=== PATIENT | male | born 1950 | race Caucasian/White ===

== ENCOUNTER 2021-10-14 06:47 | Outpatient (CLI) | payer OTHER, SELFPAY ==
--- NOTE | 2021-10-14 | US_ITS ---
WS: [id number] RENAL ULTRASOUND HISTORY: LEFT flank pain COMPARISON: None available. TECHNIQUE: 2-D and color Doppler imaging of the kidney submitted. Right kidney: 11.1 cm x 5.5 cm x 5.0 cm. Normal echogenicity with no hydronephrosis or mass. Left kidney: 11.7 cm x 5.2 cm x 4.7 cm. Normal echogenicity with no hydronephrosis or mass. Aorta: Normal. Urinary Bladder: Normal distention. Enlarged heterogeneous prostate gland. Prostate measures 4.4 x 4.5 x 3.7 cm. There is mild encroachme nt into the base of the urinary bladder. US/US renal BI* [id number] IMPRESSION: 1. Normal renal ultrasound. 2. Mildly enlarged prostate gland.
== END 2021-10-14 06:48 | disposition home or self-care (01) ==
LOC: RAD 06:50
PROVIDERS: Visit Provider Family Medicine
DX: R10.32 Left lower quadrant pain (principal); N40.0 Benign prostatic hyperplasia without lower urinary tract symptoms
CPT/HCPCS: 76770

== ENCOUNTER → 2023-10-30 11:01 | Outpatient (BNVA) | payer OTHER, SELFPAY | PROVIDERS: PCP Family Medicine; Visit Provider Internal Medicine Rheumatology | DX: Z11.59 Encounter for screening for other viral diseases (principal); Z11.1 Encounter for screening for respiratory tuberculosis; Z79.899 Other long term (current) drug therapy; M19.90 Unspecified osteoarthritis, unspecified site | CPT/HCPCS: 36415; 73130; 73630; 82306; 84550; 85651; 86140; 86200; 86431; 86480; 86704; 86803; 87340; 99204 ==

== ENCOUNTER 2023-12-12 08:11 | Outpatient (CLI) | payer OTHER, SELFPAY ==
[2023-12-12 08:22] LABS: Basophils # 0.1 10^3/uL (0.0-0.1); Basophils % 0.9 %; Eosinophils # 0.4 10^3/uL (0.0-0.8); Eosinophils % 5.5 %; Hematocrit 41.5 % (37-53); Lymphocytes # 2.6 10^3/uL (0.8-4.8); Lymphocytes % 33.8 %; Mean Corpuscular HGB Conc 33.5 g/dL (30-55); Mean Corpuscular Hemoglobin 29.9 pg (27-33); Mean Corpuscular Volume 89.2 fl (82-101); Mean Platelet Volume 9.8 fL (7.4-10.4); Monocytes # 0.7 10^3/uL (0.2-0.9); Monocytes % 8.9 %; Neutrophils # 3.87 10^3/uL (1.8-7.7); Neutrophils % 50.5 %; Nucleated Red Blood Cells % 0 %; Platelet Count 219 10^3/cmm (157-399); Red Blood Count 4.65 10^6/uL (3.85-5.65); Red Cell Distribution Width 14.7 % (12.1-15.1); White Blood Count 7.66 10^3/uL (3.29-11.43)
[2023-12-12 08:39] LABS: Alanine Aminotransferase 25 U/L (0-41); Albumin Level 4.2 g/dL (3.5-5.2); Alkaline Phosphatase 67 U/L (40-130); Aspartate Amino Transferase 18 U/L (0-40); Globulin 2.8 g/dL (1.3-4.6); Total Bilirubin 0.6 mg/dL (0.15-1.2)
== END 2023-12-12 08:12 | disposition home or self-care (01) ==
LOC: LAB 08:12
PROVIDERS: PCP Family Medicine; Visit Provider Internal Medicine Rheumatology
DX: M19.90 Unspecified osteoarthritis, unspecified site (principal); Z79.899 Other long term (current) drug therapy; N18.30 Chronic kidney disease, stage 3 unspecified
CPT/HCPCS: 36415; 80076; 82565; 85025; 86140

== ENCOUNTER 2024-04-01 09:12 | Outpatient (CLI) | payer OTHER, SELFPAY ==
[2024-04-01 09:28] LABS: Basophils % 0.5 %; Eosinophils # 0.3 10^3/uL (0.0-0.8); Eosinophils % 2.8 %; Hematocrit 42.8 % (37-53); Lymphocytes # 1.9 10^3/uL (0.8-4.8); Lymphocytes % 21.3 %; Mean Corpuscular HGB Conc 33.4 g/dL (30-55); Mean Corpuscular Hemoglobin 30.4 pg (27-33); Mean Corpuscular Volume 90.9 fl (82-101); Mean Platelet Volume 10.3 fL (7.4-10.4); Monocytes # 0.7 10^3/uL (0.2-0.9); Monocytes % 7.5 %; Neutrophils # 5.94 10^3/uL (1.8-7.7); Neutrophils % 67.6 %; Nucleated Red Blood Cells % 0 %; Platelet Count 219 10^3/cmm (157-399); Red Blood Count 4.71 10^6/uL (3.85-5.65); Red Cell Distribution Width 13.7 % (12.1-15.1); White Blood Count 8.79 10^3/uL (3.29-11.43)
[2024-04-01 09:46] LABS: Alanine Aminotransferase 27 U/L (0-41); Albumin Level 4.1 g/dL (3.5-5.2); Alkaline Phosphatase 60 U/L (40-130); Aspartate Amino Transferase 21 U/L (0-40); Globulin 2.8 g/dL (1.3-4.6); Total Bilirubin 0.6 mg/dL (0.15-1.2); Total Protein 6.9 g/dL (6.6-8.7)
[2024-04-01 09:48] LABS: Erythrocyte Sedimentation Rate < 1 mm/hr (0-10)
== END 2024-04-01 09:13 | disposition home or self-care (01) ==
PROVIDERS: PCP Family Medicine; Visit Provider Internal Medicine Rheumatology
DX: N18.30 Chronic kidney disease, stage 3 unspecified (principal); M06.041 Rheumatoid arthritis without rheumatoid factor, right hand; M06.042 Rheumatoid arthritis without rheumatoid factor, left hand; Z79.899 Other long term (current) drug therapy; Z71.85 Encounter for immunization safety counseling; Z11.1 Encounter for screening for respiratory tuberculosis; Z11.59 Encounter for screening for other viral diseases
CPT/HCPCS: 36415; 80076; 82565; 85025; 85651; 86140; 99214

== ENCOUNTER 2024-05-16 08:23 | Outpatient (CLI) | payer OTHER, SELFPAY ==
[2024-05-16 08:41] LABS: Basophils % 0.6 %; Eosinophils # 0.2 10^3/uL (0.0-0.8); Eosinophils % 2.9 %; Hematocrit 43.9 % (37-53); Lymphocytes % 29.7 %; Mean Corpuscular HGB Conc 33.7 g/dL (30-55); Mean Corpuscular Hemoglobin 30.7 pg (27-33); Mean Corpuscular Volume 91.1 fl (82-101); Mean Platelet Volume 10.4 fL (7.4-10.4); Monocytes # 0.6 10^3/uL (0.2-0.9); Monocytes % 9.8 %; Neutrophils # 3.72 10^3/uL (1.8-7.7); Neutrophils % 56.7 %; Nucleated Red Blood Cells % 0 %; Platelet Count 200 10^3/cmm (157-399); Red Blood Count 4.82 10^6/uL (3.85-5.65); Red Cell Distribution Width 13.4 % (12.1-15.1); White Blood Count 6.56 10^3/uL (3.29-11.43)
[2024-05-16 08:43] LABS: Erythrocyte Sedimentation Rate < 1 mm/hr (0-10)
[2024-05-16 09:00] LABS: Alanine Aminotransferase 37 U/L (0-41); Alkaline Phosphatase 65 U/L (40-130); Aspartate Amino Transferase 25 U/L (0-40); Globulin 2.8 g/dL (1.3-4.6); Total Bilirubin 0.6 mg/dL (0.15-1.2); Total Protein 6.8 g/dL (6.6-8.7)
== END 2024-05-16 08:24 | disposition home or self-care (01) ==
LOC: LAB 08:25
PROVIDERS: PCP Family Medicine; Visit Provider Internal Medicine Rheumatology
DX: Z79.899 Other long term (current) drug therapy (principal); M19.90 Unspecified osteoarthritis, unspecified site
CPT/HCPCS: 80076; 82565; 85025; 85651; 86140

== ENCOUNTER 2024-10-10 08:51 | Outpatient (CLI) | payer OTHER, SELFPAY ==
[2024-10-10 09:46] LABS: Bilirubin Urine Negative (Negative); Blood Urine Trace (Negative); Glucose Urine UA Negative (Normal); Ketones Urine Negative (Negative); Leukocyte Esterase Urine 2+ (Negative); Nitrate Urine Negative (Negative); Protein Urine 1+ (Negative); Specific Gravity, Urine 1.024 (1.005-1.030); Urine Appearance Clear (CLEAR); Urine Color Dark Yellow (Yellow); Urobilinogen Urine 0.2 mg/dL (Negative); pH Urine 5.5 (5-7)
[2024-10-10 10:11] LABS: Albumin Level 3.8 g/dL (3.5-5.2); Anion Gap 13.5 (5-19); Blood Urea Nitrogen 21 mg/dL (8-23); Calcium 9.2 mg/dL (8.5-10.5); Carbon Dioxide 26 mmol/L (22-29); Chloride 106 mmol/L (98-107); Glucose 96 mg/dL (65-115); Osmolality Calculated 297 mOsm/kg (285-295); Phosphorus 2.2 mg/dL (2.5-4.5); Potassium 3.5 mmol/L (3.5-5.1); Sodium 142 mmol/L (136-145)
[2024-10-10 10:12] LABS: Calcium 9.2 mg/dL (8.5-10.5)
[2024-10-10 10:16] LABS: Add Urine Culture? Yes; Bacteria Urine 2+ /hpf; Hyaline Casts Urine 0-4 /lpf; RBC Urine 0-4 /hpf (0-2); Squamous Epithelial Cell Urine 0-4 /hpf (0-5); UA Manual Slide Review YES; UA Slide Review UA Slide Review Perf; WBC Urine 25-40 /hpf (0-5)
[2024-10-10 10:17] LABS: Urine Creatinine 232 mg/dL (39-259)
[2024-10-10 10:18] LABS: Urine Protein Random 34 mg/dL
[2024-10-10 10:18] LABS: Parathyroid Hormone 43.6 pg/mL (15-65)
[2024-10-10 10:27] LABS: 25 Hydroxy Vitamin D 51 ng/mL (30-100)
== END 2024-10-10 08:52 | disposition home or self-care (01) ==
LOC: LAB 08:53
PROVIDERS: PCP Family Medicine; Visit Provider Nurse Practitioner Gerontology
DX: N18.31 Chronic kidney disease, stage 3a (principal); I12.9 Hypertensive chronic kidney disease with stage 1 through stage 4 chronic kidney disease, or unspecified chronic kidney disease; M10.9 Gout, unspecified; R80.1 Persistent proteinuria, unspecified
CPT/HCPCS: 36415; 80048; 81001; 82040; 82306; 82310; 82570; 83735; 83970; 84100; 84156; 84550; 85018; 87086

== ENCOUNTER 2024-10-20 10:34 | Outpatient (CLI) | payer OTHER, SELFPAY ==
[2024-10-20 11:00] LABS: Basophils # 0.1 10^3/uL (0.0-0.1); Basophils % 0.9 %; Eosinophils # 0.4 10^3/uL (0.0-0.8); Eosinophils % 4.9 %; Hematocrit 42.3 % (37-53); Lymphocytes # 1.8 10^3/uL (0.8-4.8); Lymphocytes % 24.3 %; Mean Corpuscular HGB Conc 32.9 g/dL (30-55); Mean Corpuscular Hemoglobin 29.7 pg (27-33); Mean Corpuscular Volume 90.4 fl (82-101); Mean Platelet Volume 10.1 fL (7.4-10.4); Monocytes # 0.7 10^3/uL (0.2-0.9); Monocytes % 8.9 %; Neutrophils # 4.48 10^3/uL (1.8-7.7); Neutrophils % 60.6 %; Nucleated Red Blood Cells % 0 %; Platelet Count 315 10^3/cmm (157-399); Red Blood Count 4.68 10^6/uL (3.85-5.65); Red Cell Distribution Width 13.2 % (12.1-15.1)
[2024-10-20 11:19] LABS: Alanine Aminotransferase 26 U/L (0-41); Albumin Level 4.1 g/dL (3.5-5.2); Alkaline Phosphatase 125 U/L (40-130); Aspartate Amino Transferase 20 U/L (0-40); Globulin 3.1 g/dL (1.3-4.6); Total Bilirubin 0.4 mg/dL (0.15-1.2); Total Protein 7.2 g/dL (6.6-8.7)
[2024-10-20 11:33] LABS: Erythrocyte Sedimentation Rate 8 mm/hr (0-10)
== END 2024-10-20 10:35 | disposition home or self-care (01) ==
LOC: LAB 10:36
PROVIDERS: PCP Family Medicine; Visit Provider Internal Medicine Rheumatology
DX: Z79.899 Other long term (current) drug therapy (principal); M06.041 Rheumatoid arthritis without rheumatoid factor, right hand; M06.042 Rheumatoid arthritis without rheumatoid factor, left hand
CPT/HCPCS: 36415; 80076; 82565; 85025; 85651; 86140

== ENCOUNTER → 2024-10-27 09:03 | Outpatient (BNVA) | payer OTHER, SELFPAY | PROVIDERS: PCP Family Medicine; Referring Provider Internal Medicine Rheumatology; Visit Provider Internal Medicine Rheumatology | DX: N18.30 Chronic kidney disease, stage 3 unspecified (principal); Z79.899 Other long term (current) drug therapy; Z71.85 Encounter for immunization safety counseling; M06.041 Rheumatoid arthritis without rheumatoid factor, right hand; M06.042 Rheumatoid arthritis without rheumatoid factor, left hand | CPT/HCPCS: 99214 ==

== ENCOUNTER 2025-01-27 09:26 | Outpatient (CLI) | payer OTHER, SELFPAY ==
[2025-01-27 10:58] LABS: Basophils % 0.6 %; Eosinophils # 0.4 10^3/uL (0.0-0.8); Eosinophils % 5.4 %; Hematocrit 41.3 % (37-53); Lymphocytes # 1.9 10^3/uL (0.8-4.8); Lymphocytes % 27.8 %; Mean Corpuscular HGB Conc 32.9 g/dL (30-55); Mean Corpuscular Hemoglobin 29.5 pg (27-33); Mean Corpuscular Volume 89.6 fl (82-101); Mean Platelet Volume 10.7 fL (7.4-10.4); Monocytes # 0.6 10^3/uL (0.2-0.9); Monocytes % 9.4 %; Neutrophils # 3.84 10^3/uL (1.8-7.7); Neutrophils % 56.5 %; Nucleated Red Blood Cells % 0 %; Platelet Count 218 10^3/cmm (157-399); Red Blood Count 4.61 10^6/uL (3.85-5.65); Red Cell Distribution Width 13.6 % (12.1-15.1)
[2025-01-27 11:00] LABS: Erythrocyte Sedimentation Rate 1 mm/hr (0-10)
[2025-01-27 11:07] LABS: Alanine Aminotransferase 16 U/L (0-41); Alkaline Phosphatase 79 U/L (40-130); Aspartate Amino Transferase 19 U/L (0-40); Bilirubin Direct 0.19 mg/dL (0.00-0.30); C Reactive Protein 3.6 mg/L (0.0-4.9); Total Bilirubin 0.5 mg/dL (0.15-1.2)
== END 2025-01-27 09:27 | disposition home or self-care (01) ==
PROVIDERS: PCP Family Medicine; Visit Provider Internal Medicine Rheumatology
DX: M06.041 Rheumatoid arthritis without rheumatoid factor, right hand (principal); M06.042 Rheumatoid arthritis without rheumatoid factor, left hand; Z79.899 Other long term (current) drug therapy
CPT/HCPCS: 36415; 80076; 82565; 85025; 85651; 86140

== ENCOUNTER → 2025-02-16 08:48 | Outpatient (BNVA) | payer OTHER, SELFPAY | PROVIDERS: PCP Family Medicine; Visit Provider Internal Medicine Rheumatology | DX: N18.30 Chronic kidney disease, stage 3 unspecified (principal); Z79.899 Other long term (current) drug therapy; Z71.85 Encounter for immunization safety counseling; M06.041 Rheumatoid arthritis without rheumatoid factor, right hand; M06.042 Rheumatoid arthritis without rheumatoid factor, left hand | CPT/HCPCS: 99214 ==

== ENCOUNTER 2025-03-20 12:30 | Outpatient (CLI) | payer OTHER, SELFPAY ==
[2025-03-20 12:59] LABS: Hematocrit 38.2 % (37-53); Hemoglobin 12.40 g/dL (11.27-16.99); Mean Corpuscular HGB Conc 32.5 g/dL (30-55); Mean Corpuscular Hemoglobin 29.2 pg (27-33); Mean Corpuscular Volume 89.9 fl (82-101); Nucleated Red Blood Cells % 0 %; Platelet Count 270 10^3/cmm (157-399); Red Blood Count 4.25 10^6/uL (3.85-5.65); White Blood Count 7.87 10^3/uL (3.29-11.43)
[2025-03-20 13:32] LABS: Alanine Aminotransferase 39 U/L (0-41); Albumin Level 3.9 g/dL (3.5-5.2); Alkaline Phosphatase 117 U/L (40-130); Aspartate Amino Transferase 30 U/L (0-40); Globulin 3.2 g/dL (1.3-4.6); Total Protein 7.1 g/dL (6.6-8.7)
[2025-03-20 13:59] LABS: Hepatitis B Surface Antigen Non-Reactive (Nonreactive)
== END 2025-03-20 12:31 | disposition home or self-care (01) ==
LOC: LAB 12:30
PROVIDERS: PCP Family Medicine; Visit Provider Internal Medicine Rheumatology
DX: Z79.899 Other long term (current) drug therapy (principal)
CPT/HCPCS: 80076; 82306; 82565; 85025; 85651; 86140; 86480; 86704; 86803; 87340

== ENCOUNTER → 2025-04-09 11:00 | Outpatient (BNVA) | payer OTHER, SELFPAY | PROVIDERS: PCP Family Medicine; Referring Provider Internal Medicine Rheumatology; Visit Provider Specialist | DX: R20.0 Anesthesia of skin (principal); G62.9 Polyneuropathy, unspecified | CPT/HCPCS: 95909 ==

== ENCOUNTER → 2025-04-14 12:41 | Outpatient (BNVA) | payer OTHER, SELFPAY | PROVIDERS: PCP Family Medicine; Referring Provider Family Medicine; Visit Provider Specialist | DX: G62.89 Other specified polyneuropathies (principal); R20.0 Anesthesia of skin; R20.2 Paresthesia of skin | CPT/HCPCS: 95911 ==

== ENCOUNTER 2025-05-15 16:10 | Outpatient (CLI) | payer OTHER, SELFPAY ==
--- NOTE | 2025-05-15 18:24 | PETR_ITS ---
PROCEDURE INFORMATION: Exam: PET/CT Skull Base to Mid-thigh Exam date and time: 05/15/2025 5:11 PM Age: 74 years old Clinical indication: Abnormal findings; Abnormal CT scan of lungs LABS AND CLINICAL REPORTS: Glucose: 119 mg/dl Treatment strategy for malignancy (PET staging): Initial Staging (PI) TECHNIQUE: Imaging protocol: Following at least four-hour fasting and following the injection of radiopharmaceutical, low dose CT images were obtained. Then, PET images were obtained. Attenuation corrected images were constructed using the CT scan. Fused images of PET and CT were reviewed. The standardized uptake values (SUV) reported below are maximum values within a region of interest, expressed in gm/ml. Exam includes orbital meatal line to mid-thigh. SUV normalization method: BodyWeight Radiopharmaceutical: 11.88 mCi F-18 FDG (Fluorodeoxyglucose), IV. Time of imaging post radiopharmaceutical administration: 46 minutes Injection site: LAC COMPARISON: 1. DX XR hip LT 2-3V wo/w pel* [id number] 10/23/2023 10:11 AM 2. DX XR hip RT 2-3V wo/w pel* [id number] 10/23/2023 10:11 AM 3. US renal BI* [id number] 10/14/2021 7:10 AM FINDINGS: Brain: Visualized brain has normal physiologic uptake. Pharynx: No abnormal uptake. Larynx: No abnormal uptake. Lungs, pleura and trachea: No abnormal uptake. Non FDG avid 1.1 cm right lung nodule near the minor fissure on axial image 88. Heart: Normal physiologic uptake. Left atrial appendage occlusion device. Mediastinal space: No abnormal uptake. Esophagus: Focal distal esophageal FDG uptake without underlying CT abnormality shows SUV max 4.8 on axial image 123. Liver: No abnormal uptake. Gallbladder and biliary ducts: No abnormal uptake. Pancreas: No abnormal uptake. Spleen: No abnormal uptake. Adrenal glands: No abnormal uptake. Kidneys and ureters: Normal physiologic uptake. Stomach and bowel: No abnormal uptake. Colonic diverticulosis without findings of diverticulitis. Reproductive: Bilateral vasectomy clips. Vasculature: No abnormal uptake. Moderate systemic atherosclerotic calcification with infrarenal abdominal aortic aneurysm measuring 3.4 cm diameter. Lymph nodes: No abnormal uptake. No lymphadenopathy in the head, neck, chest, abdomen, pelvis, and extremities. Skeleton: Degenerative change along the spine, acromioclavicular and sacroiliac joints as well as at the left hip. L4 and L5 laminectomies with interbody spacers at L4-L5 and L5-S1. Posterior instrumented fusion hardware at L5-S1. Right total hip arthroplasty with mild surrounding low-level FDG uptake likely representing mild posttreatment change. Soft tissues: Linear FDG uptake along the right longus capitis muscle without underlying CT abnormality is likely benign. Bilateral posterior shoulder muscle FDG uptake without underlying CT abnormality is also likely benign physiologic activation or strain. METRICS: Mediastinal blood pool: SUV mean 2.1 Liver uptake: SUV mean 2.6 PET/PET skull to thigh SUBS [id number] IMPRESSION: 1. Non FDG avid 1.1 cm right lung nodule favors benignity. 2. Focal distal esophageal FDG uptake is likely inflammatory, small neoplasm not entirely excluded. 3. 3.4 cm infrarenal abdominal aortic aneurysm. 4. Additional chronic and incidental findings as above.
== END 2025-05-15 16:11 | disposition home or self-care (01) ==
LOC: RAD 16:11
PROVIDERS: PCP Family Medicine; Visit Provider Family Medicine
DX: R91.1 Solitary pulmonary nodule (principal)
CPT/HCPCS: 78815; A9552

== ENCOUNTER 2025-06-29 08:11 | Outpatient (CLI) | payer OTHER, SELFPAY ==
[2025-06-29 08:48] LABS: Hematocrit 43.4 % (37-53); Hemoglobin 14.30 g/dL (11.27-16.99); Mean Corpuscular HGB Conc 32.9 g/dL (30-55); Mean Corpuscular Hemoglobin 29.6 pg (27-33); Mean Corpuscular Volume 89.9 fl (82-101); Nucleated Red Blood Cells % 0 %; Platelet Count 200 10^3/cmm (157-399); Red Blood Count 4.83 10^6/uL (3.85-5.65); White Blood Count 6.66 10^3/uL (3.29-11.43)
[2025-06-29 09:24] LABS: Alanine Aminotransferase 22 U/L (0-41); Albumin Level 4.3 g/dL (3.5-5.2); Alkaline Phosphatase 73 U/L (40-130); Aspartate Amino Transferase 24 U/L (0-40); Globulin 2.9 g/dL (1.3-4.6); Total Protein 7.2 g/dL (6.6-8.7)
== END 2025-06-29 08:12 | disposition home or self-care (01) ==
LOC: LAB 08:13
PROVIDERS: PCP Family Medicine; Visit Provider Internal Medicine Rheumatology
DX: M06.041 Rheumatoid arthritis without rheumatoid factor, right hand (principal); M06.042 Rheumatoid arthritis without rheumatoid factor, left hand; Z79.899 Other long term (current) drug therapy; Z71.85 Encounter for immunization safety counseling; N18.30 Chronic kidney disease, stage 3 unspecified
CPT/HCPCS: 36415; 80076; 82565; 85025; 85651; 86140; 99214